=== PATIENT | female | born 1970 | race Caucasian/White ===

== ENCOUNTER → 2019-12-08 16:07 | Outpatient (CLI) | payer OTHER, SELFPAY ==
--- NOTE | ~2019-12-08 | MM_ITS ---
EXAMINATION: MM screening [facility] BI w leo HISTORY: Screening mammogram TECHNIQUE: Craniocaudal and mediolateral oblique 3-D tomosynthesis images were obtained and synthetic 2-D images were generated. CAD analysis was submitted and interpreted. COMPARISON: 12/01/2018, 11/30/2017, 11/29/2016 BREAST PARENCHYMAL COMPOSITION: There are scattered areas of fibroglandular density. FINDINGS: There is no evidence of suspicious mass, calcification, or architectural distortion to sugg est malignancy in either breast. There has been no suspicious interval change. IMPRESSION: 1. No mammographic evidence of malignancy. 2. Recommend routine screening mammography in one year. BI-RADS Category 1: Negative Reviewed, dictated and finalized at location A.
== END ==
PROVIDERS: Visit Provider Obstetrics & Gynecology Gynecology
DX: Z12.31 Encounter for screening mammogram for malignant neoplasm of breast (principal)
CPT/HCPCS: 77063; 77067

== ENCOUNTER → 2020-12-10 16:31 | Outpatient (CLI) | payer OTHER, SELFPAY ==
--- NOTE | ~2020-12-10 | MM_ITS ---
EXAMINATION: MM screening [facility] BI w leo HISTORY: Screening TECHNIQUE: Craniocaudal and mediolateral oblique 3-D tomosynthesis images were obtained and synthetic 2-D images were generated. CAD analysis was submitted and interpreted. COMPARISON: Comparison to multiple prior studies sequentially, with oldest reviewed study dated 11/21. BREAST PARENCHYMAL COMPOSITION: There are scattered areas of fibroglandular density. FINDINGS: There is no evidence of suspicious mass, calcification, or architectural distortion to sugg est malignancy in either breast. There has been no suspicious interval change. IMPRESSION: 1. No mammographic evidence of malignancy. 2. Recommend routine screening mammography in one year. BI-RADS Category 1: Negative Reviewed, dictated and finalized at location A.
== END ==
PROVIDERS: Visit Provider Nurse Practitioner
DX: Z12.31 Encounter for screening mammogram for malignant neoplasm of breast (principal)
CPT/HCPCS: 77063; 77067

== ENCOUNTER → 2022-01-16 16:25 | Outpatient (CLI) | payer OTHER, SELFPAY ==
--- NOTE | ~2022-01-16 | MM_ITS ---
EXAMINATION: MM screening [facility] BI w leo HISTORY: Screening mammogram TECHNIQUE: Craniocaudal and mediolateral oblique 3-D tomosynthesis images were obtained and synthetic 2-D images were generated. CAD analysis was submitted and interpreted. COMPARISON: 12/10/2020, 12/08/2019, 12/01/2018 BREAST PARENCHYMAL COMPOSITION: There are scattered areas of fibroglandular density. FINDINGS: No suspicious mass, calcification, or architectural distortion are identified in either naren ast to suggest malignancy. There has been no suspicious interval change. IMPRESSION: 1. No mammographic evidence of malignancy. 2. Recommend routine screening mammography in one year. BI-RADS Category 1: Negative Reviewed, dictated and finalized at location A.
== END ==
PROVIDERS: PCP Family Medicine; Visit Provider Nurse Practitioner
DX: Z12.31 Encounter for screening mammogram for malignant neoplasm of breast (principal)
CPT/HCPCS: 77063; 77067

== ENCOUNTER → 2022-03-28 09:49 | Outpatient (CLI) | payer OTHER, SELFPAY ==
--- NOTE | ~2022-03-28 | US_ITS ---
EXAMINATION: US transvaginal DATE: 03/28/2022 10:12 INDICATION: Fibroids. Irregular bleeding. Comparison:Ultrasound dated 01/24/2021 TECHNIQUE: Multiple transabdominal and endovaginal sonographic images of the pelvis performed. FINDINGS: The uterus measures 8.5 x 3.4 x 6.5 cm. In the right aspect of the uterus there is a 4 x 3. 8 x 3.5 cm uterine fibroid. The endometrial complex measures 4. The ovaries are not visualized. There is no free fluid in the pelvis. There are no abnormal masses s een on either side. IMPRESSION: 1. Bicornuate uterus. 4 cm exophytic fibroid present paracentral to the right. Reviewed, dictated and finalized at location B. PRESSURE
== END ==
PROVIDERS: PCP Family Medicine; Visit Provider Nurse Practitioner
DX: N85.2 Hypertrophy of uterus (principal); Q51.3 Bicornate uterus
CPT/HCPCS: 76830

== ENCOUNTER → 2023-05-13 15:07 | Outpatient (CLI) | payer OTHER, SELFPAY ==
--- NOTE | ~2023-05-13 | MM_ITS ---
EXAMINATION: MM screening [facility] BI w leo HISTORY: Screening TECHNIQUE: Craniocaudal and mediolateral oblique 3-D tomosynthesis images were obtained and synthetic 2-D images were generated. CAD analysis was submitted and interpreted. COMPARISON: Comparison to multiple prior studies sequentially, with oldest reviewed study dated 11/29. BREAST PARENCHYMAL COMPOSITION: Not dense: There are scattered areas of fibroglandular density. FINDINGS: There is no evidence of suspicious mass, calcification, or architectural distortion to sugg est malignancy in either breast. There has been no suspicious interval change. IMPRESSION: 1. No mammographic evidence of malignancy. 2. Recommend routine screening mammography in one year. BI-RADS Category 1: Negative Reviewed, dictated and finalized at location A. 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
== END ==
PROVIDERS: PCP Obstetrics & Gynecology Gynecology; Visit Provider Obstetrics & Gynecology Gynecology
DX: Z12.31 Encounter for screening mammogram for malignant neoplasm of breast (principal)
CPT/HCPCS: 77063; 77067

== ENCOUNTER 2024-06-28 20:43 | Emergency (ER) | payer OTHER, SELFPAY ==
--- OUTSIDE RECORDS SUMMARY | 2024-06-28 20:45 | XMS_ITS | Clinical Summary ---
Author Organization [address] Address [address] [place] [id number] Care Team Providers Care Freight Air Brake Fitter Name Role Phone Jay Jay Llanes MD Primary Care Provid er Allergies No known active allergies Medications norgestimate-eth inyl estradiol (ORTHO TRI-CYCLEN,VALENTINE SSA) 0.18/0.215/0.25 mg-35 mcg (28) per tablet 9 Active cetirizine (ZyrTEC) 10 mg tablet Rx: Zyrtec Allergy Active Vitamin D2 1,250 mcg (50,000 unit) capsule 0 Active clonazePAM (KlonoPIN) 0.5 mg tabletIndication s:Anxiety disorder, unspecified type Take 0.5-1 tablets (0.25-0.5 mg total) by mouth 2 (two) times a day as needed for anxiety 180 tablet 1 3 Active Additional Information Patient not taking.Reported on 03/09/2024 FLUoxetine (PROzac) 40 mg capsule TAKE 1 CAPSULE DAILY 90 capsule 3 4 Active levothyroxine (SYNTHROID) 25 mcg tablet TAKE 1 TABLET BY MOUTH EVERY DAY IN THE MORNING DIRECTED 4 Active liothyronine (CYTOMEL) 5 mcg tablet Take 1 tablet (5 mcg total) by mouth daily 4 Active progesterone (PROMETRIUM) 100 mg capsule TAKE 1 CAPSULE BY MOUTH ONCE A DAY AT BEDTIME. 4 Active Active Problems Problem Noted Date Diagnosed Date Anxiety disorder, unspecified 09/17/2015 Major depressive disorder, single episode, unspe cified 09/17/2015 Encounters Date Type Department Care Team Description 05/16/2024 2:58 PM BOX TRUCK WASHER - 05/16/2024 11:59 PM BOX TRUCK WASHER Hospital Encounter [facility] Medical Office Bldg 1 [facility] [address] [place] [address] Screening mammogram, encounter for Discharge Disposition: Discharge to home or self care 04/04/[address] [facility] Family Medicine [address] [phone] Jay Jay Llanes MD from Last 3 Months Immunizations Immunization Administration Dates Next Due Influenza, Trivalent, IM (MDV) 12/19/2013 Influenza, Unspecified 03/09/2024(Deferr ed: Patient Refused),03/17/2023(Deferred: Patient Refused),01/20/2022(Deferred: Patient Refused),01/25/2020(Deferred: Patient Refused) MMR 08/27/1992,05/09/1977 Pfizer SARS-CoV-2 Monovalent Vaccination (12+ Yrs) PURPLE 08/06/2020,07/09/2020 Td, adsorbed 08/27/1992 Tdap 12/16/2005 Surgical History Surgery Date Site/Laterality Comments WISDOM TOOTH EXTRACTION Medical History Medical History Date Comments Anemia Allergic Family History * Patient is adopted Medical History Relation Name Comments Diabetes Other Relation Name Status Comments Other Social History Tobacco Use Types Packs/Day Years Used Date Smoking Tobacco: Never Smokeless Tobacco: Never Tobacco Cessation:Counseling Given: Not Answered Alcohol Use Standard Drinks/Week Comments Yes 0 (1 standard drink = 0.6 oz pur e alcohol) AUDIT-C Answer Date Recorded Frequency of Alcohol Consumption Monthly or less 11/01/2018 Average Number of Drinks Not on file 019 Frequency of Binge Drinking Not on file 10/12 PHQ-2 Answer Date Recorded PHQ-2 Total Score 0 03/09/2024 Comments No Sex and Gender Information Value Date Recorded Sex Assigned at Not on file Legal Sex Female 7:04 PM BOX TRUCK WASHER Gender Identity Not on file Sexual Orientation Not on file Obstetrics History Para Term AB IAB SAB Ectopic Multiple Livin g Live Births 0 0 0 0 0 0 0 0 0 0 0 Last Filed Vital Signs Vital Sign Reading Time Taken Comments Blood Pressure 136/70 03/09/2024 2:52 PM BOX TRUCK WASHER Pulse 72 03/09/2024 2:52 PM BOX TRUCK WASHER Temperature 36.7 C (98 F) 03/09/2024 2:52 PM BOX TRUCK WASHER Respiratory Rate 18 03/09/2024 2:52 PM BOX TRUCK WASHER Oxygen Saturation 99% 03/09/2024 2:52 PM BOX TRUCK WASHER Inhaled Oxygen Concentration - - Weight 93.2 kg (205 lb 6.4 oz) 03/09/2024 2:52 P M BOX TRUCK WASHER Height 170.2 cm (5' 7 ) 03/09/2024 2:52 PM BOX TRUCK WASHER Body Mass Index 32.17 03/09/2024 2:52 PM BOX TRUCK WASHER Plan of Treatment Health Maintenance Due Date Last Done Comments Colon Cancer Screening-Colonoscopy 1970 Hepatitis C Screening 1970 Hepatitis B Screening 1990 DTaP/Tdap/Td Vaccine (2 - Td or Tdap) 12/17/2015 12/16/2005, 08/27/1992 Cervical Cancer Screening 03/09/2020 03/09/2019, Zoster Vaccine (1 of 2) 2022 Regular Well Visit/Exam 18-64 01/20/2023 01/20/2022, 01/20/2022, 09/24/2020, Additional history exists Covid-19 Vaccine ( season) 2023 04/28/2021, 08/06/2020, 07/09/2020 Influenza Vaccine (#1) 2023 12/19/2013 Depression Screening 03/09/2025 03/09/2024, 01/20/2022, 09/24/2020, Additional history exists Breast Cancer Screening-Mammogram 05/16/2025 05/16/2024, 01/16/2022, 12/08/2019, Additional history exists Pneumococcal vaccine <65 Aged Out No longer eligible based on patient's age to complete this topic Procedures Procedure Name Priority Date/Time Associated Diagnosis Comments SCREENING MAMMOGRAM BILATERAL W JEREL Schedule Routine, Read Routine (OP Routine) 05/16/2024 3:20 PM BOX TRUCK WASHER Screening mammogram, encounter for HM PAP SMEAR WITH HPV Routine 03/09/2019 from Last 3 Months or Most Recently Relevant to Health Maintenance Results * Screening Mammogram Bilateral W Jerel (05/16/2024 3:20 PM BOX TRUCK WASHER) Anatomical Region Laterality Modality Breast Bilateral Mammography Impressions 05/17/2024 2:14 PM BOX TRUCK WASHER BI-RADS ATLAS category (overall): 1 - Negative There is no mammographic evidence of malignancy. A 1 year screening mammogram is recommended. The patient has been or will be contacted. We recommend annual screening mammography for women at average risk of breast cancer beginning at age 40, based on guidelines of the [employer] (ACR Practice Parameter for the Performance of Screening and Diagnostic Mammography) and [employer]. For women with and elevated risk of breast cancer, please refer to the ACR Practice Parameter for specific screening recommendations. The patient will be entered into a reminder system with a target due date of 1 year for her next screening exam. Narrative 05/17/2024 2:14 PM BOX TRUCK WASHER Screening Mammogram Bilateral W Jerel: 05/16/24 The study was acquired using full field digital technology and interpreted from soft copy. 2D digital mammographic views, as well as 3D digital tomosynthesis were performed in the CC and MLO projections. This study was resulted using Computer-Aided Detection (CAD). CLINICAL: Screening mammogram, encounter for. No relevant medical history has been documented for this patient. No known family history of breast cancer. No comparisons were made when reading this study. BREAST TISSUE: There are scattered areas of fibroglandular density. FINDINGS: No suspicious masses, suspicious calcifications, or other suspicious findings are seen within either breast. There has been no suspicious change. us Self Screening Mammogram IMG MAMMO PROCEDURES Fi nal Result * HM PAP SMEAR WITH HPV (03/09/2019) HM Pap smear Normal Historical Provider HEALTH MAINTENANCE Final Result from Last 3 Months or Most Recently Relevant to Health Maintenance Insurance [facility] Care Teams Freight Air Brake Fitter Relationship Specialty Start Date End Date Jay Jay Llanes MD [address] [place] [address] PCP - General Family Medicine 10/29/18
--- OUTSIDE RECORDS SUMMARY | 2024-06-28 20:45 | XMS_ITS | Encounter Summary ---
Author Organization [facility] Facility Care Team Providers Care Ready Mix Truck Driver Name Role Phone Jay Jay Llnaes MD Primary Care Provid er Encounter Details Date Type Department Care Team (Latest Contact Info) Description 08/20/2015 Orders Only MMG CLINCONV ProviderShira MD [address] [place] [id number] Social History Tobacco Use Types Packs/Day Years Used Date Smoking Tobacco: Never Assessed Comments Unknown Sex and Gender Information Value Date Recorded Sex Assigned at Not on file Legal Sex Female 7:04 PM TRANSCRIPTION COORDINATOR Gender Identity Not on file Sexual Orientation Not on file documented as of this encounter Plan of Treatment Not on file documented as of this encounter Procedures Procedure Name Priority Date/Time Associated Diagnosis Comments SCAN - LABS 08/20/2015 12:00 AM CDT documented in this encounter Results * SCAN - LABS (08/20/2015 12:00 AM CDT) Narrative 08/20/2015 12:00 AM CDT Ordered by an unspecified provider. us Historical Provider Final Res ult documented in this encounter Visit Diagnoses Not on filedocumented in this encounter Care Teams Ready Mix Truck Driver Relationship Specialty Start Date End Date Jay Jay Llanes MD [address] [place] [address] PCP - General Family Medicine 10/29/18 documented as of this encounter
--- OUTSIDE RECORDS SUMMARY | 2024-06-28 20:45 | XMS_ITS | Referral Summary ---
Author Organization [address] Address [address] [address] Care Team Providers Care Software Development Specialist Name Role Phone Jay Jay Llanes MD Primary Care Provid er Encounters Date Type Department Care Team Description 05/16/2024 2:58 PM TURKEY PICKER - 05/16/2024 11:59 PM [facility] Hospital Encounter [facility] Medical Office Bldg 1 [facility] [address] [place] [address] [place] [phone] Screening mammogram, encounter for Discharge Disposition: Discharge to home or self care 04/04/2024 Telephone [facility] Medical [facility] Family Medicine [address] [place] [phone] Jay Jay Llanes MD from Last 3 Months Allergies No known active allergies Medications norgestimate-eth [...] depressive disorder, single episode, unspe cified 09/17/2015 Immunizations Immunization Administration Dates Next Due Influenza, Trivalent, IM (MDV) 12/19/2013 Influenza, Unspecified 03/09/2024(Deferr ed: Patient Refused),03/17/2023(Deferred: Patient Refused),01/20/2022(Deferred: Patient Refused),01/25/2020(Deferred: Patient Refused) MMR 08/27/1992,05/09/1977 Pfizer SARS-CoV-2 Monovalent Vaccination (12+ Yrs) PURPLE 08/06/2020,07/09/2020 Td, adsorbed 08/27/1992 Tdap 12/16/2005 Social History Tobacco Use Types Packs/Day Years [...] on file Legal Sex Female 7:04 PM TURKEY PICKER Gender Identity Not on file Sexual Orientation Not on file Last Filed Vital Signs Vital Sign Reading Time Taken Comments Blood Pressure 136/70 03/09/2024 2:52 PM TURKEY PICKER Pulse 72 03/09/2024 2:52 PM TURKEY PICKER Temperature 36.7 C (98 F) 03/09/2024 2:52 PM TURKEY PICKER Respiratory Rate 18 03/09/2024 2:52 PM TURKEY PICKER Oxygen Saturation 99% 03/09/2024 2:52 PM TURKEY PICKER Inhaled Oxygen Concentration - - Weight 93.2 kg (205 lb 6.4 oz) 03/09/2024 2:52 P M TURKEY PICKER Height 170.2 cm (5' 7 ) 03/09/2024 2:52 PM TURKEY PICKER Body Mass Index 32.17 03/09/2024 2:52 PM TURKEY PICKER Plan of Treatment Not on file Procedures Procedure Name Priority Date/Time Associated Diagnosis Comments SCREENING MAMMOGRAM BILATERAL W JEREL Schedule Routine, Read Routine (OP Routine) 05/16/2024 3:20 PM TURKEY PICKER Screening mammogram, encounter for HM PAP SMEAR WITH HPV Routine 03/09/2019 from Last 3 Months or Most Recently Relevant to Health Maintenance Results * Screening Mammogram Bilateral W Jerel (05/16/2024 3:20 PM TURKEY PICKER) Anatomical Region Laterality Modality Breast Bilateral Mammography Impressions 05/17/2024 2:14 PM TURKEY PICKER BI-RADS ATLAS category (overall): 1 - Negative There is no mammographic evidence of malignancy. A 1 year screening mammogram is recommended. The patient has been or will be contacted. We recommend annual screening mammography for women at average risk of breast cancer beginning at age 40, based on guidelines of the [employer] (ACR Practice Parameter for the Performance of Screening and Diagnostic Mammography) and [employer]. For women with and elevated risk of breast cancer, please refer to the ACR Practice Parameter for specific screening recommendations. The patient will be entered into a reminder system with a target due date of 1 year for her next screening exam. Narrative 05/17/2024 2:14 PM TURKEY PICKER Screening Mammogram Bilateral W Jerel: 05/16/24 The [...] breast. There has been no suspicious change. Self Screening Mammogram IMG MAMMO PROCEDURES Fi nal Result * PAP SMEAR WITH HPV (03/09/2019) Pap smear Normal Historical Provider HEALTH MAINTENANCE Final Result from Last 3 Months or Most Recently Relevant to Health Maintenance Insurance [facility] Care Teams Software Development Specialist Relationship Specialty Start Date End Date Jay Jay Llanes MD [address] [place] [address] PCP - General Family Medicine 10/29/18
--- OUTSIDE RECORDS SUMMARY | 2024-06-28 20:46 | XMS_ITS ---
Author Organization [facility] Address [address] [place] [address] Care Team Providers Care Automotive Service Director Name Role Phone Jay Jay Llanes MD Primary Care Provider Unavail able Teresita King Unavailable [phone] ZZ-Migration, Provider Unavailable Unavailab REASON FOR VISIT [facility] [place] [facility] To [facility] Conversion Encounter Medications Medication SIG (Take, Route, Frequency, Duration) Notes Start Date End Date Status ZANTAC 150 150 MG 1 TAB(S) ORALLY 2 TIMES A DAY *Please review for potential replacement for e-prescription and drug interaction check* Active Auvi-Q 0.3 MG/0.3ML 0.3 mg intramuscularly once for 1 dose(s) Active Singulair 10 MG 1 tab(s) orally 30 minutes prior to shots Active ZyrTEC Allergy 10 MG 1 tab(s) orally once a day Active Pataday 0.2 % 1 gtt in each affected eye once a day Active Flonase Allergy Relief 50 MCG/ACT 1 spray(s) intranasally once a day for 30 day(s) Not-Taking SIT (TRADITIONAL) VARIABLE PER SCHEDULE SC PER SCHEDULE *Please review for potential replacement for e-prescription and drug interaction check* Active clonazePAM 0.5 MG 1 tab(s) orally 3 times a day Not-Taking SIT (CLUSTER) VARIABLE PER SCHEDULE SC PER SCHEDULE for TO BE DETERMINED *Please review for potential replacement for e-prescription and drug interaction check* Not-Taking FLUoxetine HCl 20 MG 1 cap(s) orally once a day Not-Taking SIT (TRADITIONAL) VARIABLE PER SCHEDULE SC PER SCHEDULE for TO BE DETERMINED *Please review for potential replacement for e-prescription and drug interaction check* Active Fish Oil 1000 MG 1 cap(s) orally 3 times a day Active Singulair 10 MG 1 tab(s) orally once a day (in the evening) Active TriNessa (28) 0.18/0.215/0.25 MG-35 MCG 1 tab(s) orally once a day Active Vitamin D3 50 MCG (1999 UT) 1 tab(s) orally once a day Active EpiPen 2-Derick 0.3 MG/0.3ML 0 mg intramuscularly once for 1 dose(s) Active Encounters Encounter Location Date Provider Diagnosis [address] [phone] 09/26/2023 Provider Jose Allergic rhinitis due to pollen J30.1 and Other chronic allergic conjunctivitis H10.45 Assessments Encounter Date Diagnosis (ICD Code) Assessment Notes Treatment Notes Treatment Clinical Notes Section Notes 09/26/2023 Allergic rhinitis due to pollen (ICD-10 - J30.1) 09/26/2023 Other chronic allergic conjunctivitis (ICD-10 - H10.45) Plan Of Treatment Medication Medication Name Sig Start Date Stop Date Notes ZANTAC 150 150 MG 1 TAB(S) ORALLY 2 TI MES A DAY *Please review for potential replacement for e-prescription and drug interaction check* Auvi-Q 0.3 MG/0.3ML 0.3 mg intramuscular ly once for 1 dose(s) Singulair 10 MG 1 tab(s) orally 30 minutes prior to shots ZyrTEC Allergy 10 MG 1 tab(s) orally onc e a day Pataday 0.2 % 1 gtt in each affect ed eye once a day SIT (TRADITIONAL) VARIABLE PER SCHEDULE SC PER SCHEDULE *Please review for potential replacement for e-prescription and drug interaction check* Progress Notes * Kelsey RANGEL CDOB: [birth year] (53 yo F)Acc No.[id number]:09/26/2023 Patient: Kelsey JACKMAN Provider: Idris Benoit :1970 A ge:52 Y S ex:Female Date:09/26/2023 Address:[address] [place] [address] [facility] Pcp:Jay Jay Llanes MD Subjective: * Chief Complaints: * 1 . Multum To Medispan Conversion Encounter. * Medical History: * Medications: T aking EpiPen 2-Derick 0.3 MG/0.3ML Solution Auto-injector 0 mg intramuscularly once , Taking TriNessa (28) 0.18/0.215/0.25 MG-35 MCG Tablet 1 tab(s) orally once a day , Taking Vitamin D3 50 MCG (2000 UT) Tablet 1 tab(s) orally once a day , Taking Fish Oil 1000 MG Capsule 1 cap(s) orally 3 times a day , Taking Singulair 10 MG Tablet 1 tab(s) orally once a day (in the evening) , Taking SIT (TRADITIONAL) VARIABLE SEE RECORD PER SCHEDULE SC PER SCHEDULE , Notes to Pharmacist: *Please review for potential replacement for e-prescription and drug interaction check*, Not- Taking/PRN FLUoxetine HCl 20 MG Capsule 1 cap(s) orally once a day , Not-Taking/PRN clonazePAM 0.5 MG Tablet 1 tab(s) orally 3 times a day , Not-Taking/PRN SIT (CLUSTER) VARIABLE SEE RECORD PER SCHEDULE SC PER SCHEDULE , Notes to Pharmacist: *Please review for potential replacement for e-prescription and drug interaction check*, Not- Taking/PRN Flonase Allergy Relief 50 MCG/ACT Suspension 1 spray(s) intranasally once a day Objective: * Vitals: Assessment: * Assessment: 1. A llergic rhinitis due to pollen - J30.1 (Primary) 2 . O ther chronic allergic conjunctivitis - H10.45 Plan: * Treatment: 2. O ther chronic allergic conjunctivitis Continue Pataday Solution, 0.2 %, 1 gtt, in each affected eye, once a day. * Billing Information: * Visit Code: * Procedure Codes: * Electronic signature of Prabha MENEZES-Migration on 06/28/2024 at 08:45 PM CDT Sign off status: Pending * Provider: Idris fairbanks Migration Date: 09/26/2023 Generated for Jax john/Reilly/Ravi on: 06/28/2024 08:45 PM CDT
--- OUTSIDE RECORDS SUMMARY | 2024-06-28 20:46 | XMS_ITS | Clinical Summary ---
Author Organization [facility] Address [address] [place] [address] Care Team Providers Care Manager Safe Name Role Phone Unavailable Primary Care Provider Unavailabl e Source Comments [facility],non-owned Affiliates and Associated Physician Practices is amultiple site organization consisting of ambulatory clinics and hospital sitesin [place], [place], [place] and [place]. This disclosure is being madepursuant to the Care Everywhere program and may not contain all information available regarding this patient. Last updated 18.[facility] [employer] Allergies No known active allergies Medications * Be aware that medications may not be up to date on this document. Alwaysverify current medications with the patient. Medication Sig Dispensed Refills Start Date End Date Status VITAMIN D PO Active OtherIndications:Fem puneet Control Device Expulsion from Genital Tract Reasons: Expulsion of Female Control Device Active Cetirizine HCl (ZYRTEC PO) Active clonazePAM (KLONOPIN) 0.5 MG tablet Take 0.25-0.5 mg by mouth 11/01/2018 Active vitamin D, ergocalciferol, (DRISDOL) 1.25 MG (68253 UT) capsule 02/13/2019 Active norgestim-eth estrad triphasic tablet 10/15/2018 Active azithromycin (ZITHROMAX) 250 MG tablet Take 2 tabs today, then 1 tab daily for next 4 days 6 tablet 03/20/2019 Active Social History Tobacco Use Types Packs/Day Years Used Date Smoking Tobacco: Never Smokeless Tobacco: Never Tobacco Cessation:Counseling Given: Yes Sex and Gender Information Value Date Recorded Sex Assigned at Not on file Gender Identity Not on file Sexual Orientation Not on file Last Filed Vital Signs Vital Sign Reading Time Taken Comments Blood Pressure 110/80 03/20/2019 12:24 PM MAINTENANCE GROUNDSKEEPER Pulse 82 03/20/2019 12:24 PM MAINTENANCE GROUNDSKEEPER Temperature 37.2 C (98.9 F) 03/20/2019 12:24 PM MAINTENANCE GROUNDSKEEPER Respiratory Rate 16 03/20/2019 12:24 PM MAINTENANCE GROUNDSKEEPER Oxygen Saturation 99% 03/20/2019 12:24 PM MAINTENANCE GROUNDSKEEPER Inhaled Oxygen Concentration - - Weight 86.2 kg (190 lb) 03/20/2019 12:24 PM MAINTENANCE GROUNDSKEEPER Height 170.2 cm (5' 7 ) 03/20/2019 12:24 PM MAINTENANCE GROUNDSKEEPER Body Mass Index 29.76 03/20/2019 12:24 PM MAINTENANCE GROUNDSKEEPER Plan of Treatment Health Maintenance Due Date Last Done Comments COLOGUARD (AGES 45-75) - COL ON CA SCREENING 1972 COLON MONITORING 1972 COLONOSCOPY - COLON CA SCREENING 1972 CT COLONOGRAPHY - COLON CA SCREENING 1972 Colorectal Cancer Screening 1972 FIT - COLON CA SCREENING 1972 FLEX SIG - COLON CA SCREENING 1972 LIPID TESTING 1972 MAMMOGRAM 1972 PAP SMEAR 1972 HIV SCREENING 12/03/1987 HEPATITIS C SCREENING 11/28/1990 DTAP/TDAP/TD VACCINES (1 - Tdap) 12/03/1991 HEPATITIS B VACCINE (1 of 3 - 19+ 3-dose series) 12/03/1991 SCREENING FOR DIABETES 03/07/2019 PNEUMOCOCCAL VACCINE 50+ (1 of 1 - PCV) 2022 ZOSTER VACCINE (1 of 2) 2022 COVID-19 VACCINE (1 - 2023-2 5 season) 2023 INFLUENZA VACCINE (#1) 2023 DEPRESSION SCREENING 04/13/2024 HIB VACCINE Aged Out No longer eligi ble based on patient's age to complete this topic HPV VACCINE Aged Out No longer eligi ble based on patient's age to complete this topic MENINGOCOCCAL (Group B) VACC INE SHARED DECISION-MAKING Aged Out No longer eligibl e based on patient's age to complete this topic MENINGOCOCCAL GROUPS A/C/Y/W VACCINE Aged Out No longer eligible b ased on patient's age to complete this topic PNEUMOCOCCAL VACCINE Aged Out No long er eligible based on patient's age to complete this topic
--- OUTSIDE RECORDS SUMMARY | 2024-06-28 20:46 | XMS_ITS ---
Author Organization [facility] Address [address] [place] [address] Care Team Providers Care Insurance Healthcare Representative Name Role Phone Jay Jay Llanes MD Primary Care Provider Unavail able Teresita King Unavailable [phone] REASON FOR VISIT Message Encounters Encounter Location Date Provider Diagnosis [facility] [address] [place] [address] 03/09/2024 Teresita King Plan Of Treatment No Information Progress Notes * Kelsey RANGEL CDOB: [birth year] (53 yo F)Acc No.[id number]:03/09/2024 Patient: Estela Kelsey ALVARADO :1970 A ge:53 Y S ex:Female Address:[address], [place], [address] * true * Date: Generated for Printi ng/Faxing/eTransmitting on: 0 06/28/2024 08:45 PM CDT
[2024-06-28 21:01] VITALS: BP 136/87; PULSE 102; RESP 15; TEMP 36.9; O2SAT 98
[2024-06-28 21:44] LABS: Strep Group A RT-PCR NOT DETECTED (Negative)
[2024-06-28 22:40] LABS: Influenza A QL RT-PCR Negative (Negative); Influenza B QL RT-PCR Negative (Negative); SARS-CoV-2 RNA PCR Negative (Negative)
--- NOTE | 2024-06-28 22:52 | ED_ITS ---
HPI - URI/Sore Throat General Chief Complaint: Dental/Oral Stated Complaint: Strep throat Time Seen by Provider: 06/28/24 22:37 Source: patient Mode of arrival: ambulatory Limitations: no limitations History of Present Illness HPI Narrative: This is a 53-year-old female that presents to the emergency department for sore throat. Reports associated rhinorrhea, congestion, subjective fevers. Related Data Allergies Allergy/AdvReac Type Severity Reaction Status Date / Time No Known Allergies Allergy Verified 06/28/24 20:43 Review of Systems Review of Systems: CONSTITUTIONAL: Reports fever ENT: Reports rhinorrhea, congestion, sore throat All systems reviewed & are unremarkable except as noted in HPI and below PMFSH Past Medical History Medical History (Updated 06/28/24 @ 22:57 by Nikki Jackman PA-C) History of hypothyroidism Social History Social History (Updated 06/28/24 @ 22:57 by Nikki Jackman PA-C) Substance use: never Exam Narrative: GENERAL: Well-appearing, well-nourished, and in no acute distress. HEAD: Normocephalic, atraumatic. EYES: EOMI. ENT: Nares clear, no rhinorrhea or epistaxis. Mucous membranes moist. Oropharynx without tonsillar hypertrophy, exudate or other lesions. Bilateral TMs pearly perez non-bulging NECK: Supple. No adenopathy or masses. CHEST: Clear to auscultation. No respiratory distress. No wheezes rales or rhonchi HEART: Regular rate and rhythm. No murmur heard. Normal peripheral pulses. EXTREMITIES: Normal range of motion. No edema. SKIN: Warm, dry, no rash. NEURO: No focal deficits. Alert and oriented x3. PSYCH: Normal mood and affect Course Course Emergency Course: Patient updated on her workup and agrees with care Vital Signs Vital signs: Vital Signs Temperature 98.5 F 06/28/24 21:01 Pulse Rate 102 H 06/28/24 21:01 Respiratory Rate 15 06/28/24 21:01 Blood Pressure 136/87 06/28/24 21:01 Pulse Oximetry 98 06/28/24 21:01 Oxygen Delivery Room Air 06/28/24 21:01 Temperature 98.5 F 06/28/24 21:01 Pulse Rate 102 H 06/28/24 21:01 Respiratory Rate 15 06/28/24 21:01 Blood Pressure 136/87 06/28/24 21:01 Pulse Oximetry 98 06/28/24 21:01 Oxygen Delivery Room Air 06/28/24 21:01 MDM - URI/Sore Throat MDM Narrative Medical decision making narrative: Patient presents to the emergency department upper respiratory symptoms. She is afebrile and nontoxic appearing. Lungs are clear on exam. Oxygen saturation is normal on room air. COVID, influenza, and strep screens are negative. Patient was instructed on continued care of viral infection. She is to follow up with primary provider. She was given warnings to return to the ER Differential Diagnosis Differential diagnosis: Likely upper respiratory infection, sinusitis, viral infection, bronchitis, influenza, pharyngitis and other (COVID) Lab Data Attestation: I reviewed the patient's lab results. Labs: Lab Results 06/28/24 Range/Units 21:11 Influenza A (RT-PCR) Negative (Negative) Influenza B (RT-PCR) Negative (Negative) SARS-CoV-2 RNA (RT-PCR) Negative (Negative) Group A Strep (PCR) Not detected (Negative) Critical Care Time Critical Care Time Critical Care Time: No Discharge Plan Discharge Clinical Impression: Pharyngitis Qualifiers: Pharyngitis/tonsillitis etiology: unspecified etiology Qualified Code(s): J02.9 - Acute pharyngitis, unspecified Patient Disposition: Home, Self-Care Condition: Stable Instructions: Pharyngitis (ED) Additional Instructions: Return to the emergency department for worsening symptoms, or any other concerns Remain well-hydrated, get plenty of rest. Take Tylenol or Motrin over -the-counter for pain as needed. Flonase for nasal congestion. Zyrtec for runny nose. Lozenges or Chloraseptic spray for sore throat. Follow up with your primary care doctor Patient Language: [place] Islander Follow-up/Referrals: Milly Christopher MD [Primary Care Provider] -
[2024-06-28 23:03] VITALS: BP 127/83; PULSE 99; RESP 18; O2SAT 99
--- OUTSIDE RECORDS SUMMARY | 2024-06-28 23:08 | XMS_ITS | Patient Health Record ---
Author Organization [facility] Address [address] [place] [address] Care Team Providers Care Medical Management Trainer Name Role Phone Jay Jay Llanes MD Primary Care Provider Unavail able Teresita King Unavailable [phone] [employer], Provider Unavailable Unavailab le Reason For Referral No Information Medications Medication SIG (Take, Route, Frequency, Duration) Notes Start Date End Date Status ZANTAC 150 150 MG 1 TAB(S) ORALLY 2 TIMES A DAY *Please review for potential replacement for e-prescription and drug interaction check* Active Auvi-Q 0.3 MG/0.3ML 0.3 mg intramuscularly once for 1 dose(s) Active Singulair 10 MG 1 tab(s) orally 30 minutes prior to shots Active EpiPen 2-Derick 0.3 MG/0.3ML 0 mg intramuscularly once for 1 dose(s) Active ZyrTEC Allergy 10 MG 1 tab(s) orally once a day Active Pataday 0.2 % 1 gtt in each affected eye once a day Active PATADAY 0.2% 1 gtt in each affected eye once a day Active TRINESSA triphasic 35 mcg 1 tab(s) orally once a day Active AUVI -Q 0.3 mg 0.3 mg intramuscularly once for 1 dose(s) Active EPIPEN 2-DERICK 0.3 mg 0 mg intramuscularly once for 1 dose(s) Active SINGULAIR 10 mg 1 tab(s) orally 30 minutes prior to shots Active ZYRTEC 10 mg 1 tab(s) orally once a day Active Flonase Allergy Relief [...] for e-prescription and drug interaction check* Not-Taking SIT (TRADITIONAL) VARIABLE PER SCHEDULE SC PER SCHEDULE for TO BE DETERMINED *Please review for potential replacement for e-prescription and drug interaction check* Active FLUoxetine HCl 20 MG 1 cap(s) orally once a day Not-Taking Fish Oil 1000 MG 1 cap(s) orally 3 times a day Active Singulair 10 MG 1 tab(s) orally once a day (in the evening) Active TriNessa (28) 0.18/0.215/0.25 MG-35 MCG 1 tab(s) orally once a day Active Vitamin D3 50 MCG (2000 UT) 1 tab(s) orally once a day Active FLONASE 50 mcg/inh 1 spray(s) intranasally once a day for 30 day(s) Not-Taking CLONAZEPAM 0.5 mg 1 tab(s) orally 3 times a day Not-Taking VITAMIN D3 2000 intl units 1 tab(s) orally once a day Active FISH OIL 1000 mg 1 cap(s) orally 3 times a day Active FLUOXETINE 20 mg 1 cap(s) orally once a day Not-Taking SINGULAIR 10 mg 1 tab(s) orally once a day (in the evening) Active Immunizations Vaccine Route Administration Date Status Comme nts Influenza Unknown 12/19/2013 Administered Influenza Unknown 03/16/2018 Refused Social History Tobacco Use: Social History Observation Description Date Details (start date - stop date) Former Smoker NA - NA Smoking Smart Form: Question Answer Notes Are you a: former smoker How long it has been since you last smoked? > 10 years Problems Problem Type SNOMED Code ICD Code Onset Dates Problem Status W/U Status Risk Notes Problem Chronic allergic conjunctivitis (44737746) Chronic allergic conjunctivitis NOS (372.14) Active confirmed Problem Allergic rhinitis due to allergen (83423273) Allergic rhinitis due to allergen (477.8) Active confirmed Problem Chronic allergic conjunctivitis (15514778) Other chronic allergic conjunctivitis (H10.45) Active confirmed Problem Allergic rhinitis (00365586) Other allergic rhinitis (J30.89) Active confirmed Problem Allergic rhinitis caused by pollen (disorder) (92886452) Allergic rhinitis due to pollen (J30.1) Active confirmed Problem Allergic rhinitis caused by animal hair and dander (856723875137888) Allergic rhinitis due to animal (cat) (dog) hair and dander (J30.81) Active confirmed Encounters Encounter Location Date Provider Diagnosis [address] [address] 09/26/2023 Provider Jose Allergic rhinitis due to pollen J30.1 and Other chronic allergic conjunctivitis H10.45 [facility] [address] [facility] [address] [place] [address] 03/09/2024 Teresita King Assessments Encounter Date Diagnosis (ICD Code) Assessment Notes Treatment Notes Treatment Clinical Notes Section Notes 09/26/2023 Allergic rhinitis due to pollen (ICD-10 - J30.1) 09/26/2023 Other chronic allergic conjunctivitis (ICD-10 - H10.45) Plan Of Treatment No Information Insurance Providers Payer Name Payer Address Payer Phone Subscriber Number Group Number Insured Name Patient Relationship to Insured Coverage Start Date Coverage End Date [facility] [address] [place] [address] [phone] [id number] Nicholas Morataya i Spouse - patient is the spouse of the insured Medical (General) History Medical History History ICD Code Allergic rhinitis due to allergen Chronic allergic conjunctivitis NOS Surgical History Surgery Date(Month/Year)
--- OUTSIDE RECORDS SUMMARY | 2024-06-28 23:08 | XMS_ITS | Encounter Summary ---
Author Organization [facility] Care Team Providers Care Food Service Attendant Name Role Phone Jay Jay Llanes MD Primary Care Provid er Encounter Details Date Type Department Care Team (Latest Contact Info) Description 08/20/2015 Orders Only [facility]INCONV ProviderShira MD [address] [place] [id number] Social History Tobacco Use Types Packs/Day Years Used Date Smoking Tobacco: Never Assessed Comments Unknown Sex and Gender Information Value Date Recorded Sex Assigned at Not on file Legal Sex Female 7:04 PM ROTARY DERRICK OPERATOR Gender Identity Not on file Sexual Orientation [...] on filedocumented in this encounter Care Teams Food Service Attendant Relationship Specialty Start Date End Date Jay Jay Llanes MD [address] [place] [address] PCP - General Family Medicine 10/29/18 documented as of this encounter
--- OUTSIDE RECORDS SUMMARY | 2024-06-28 23:09 | XMS_ITS | Clinical Summary ---
Author Organization [facility] Address [address] [place] [address] Care Team Providers Care Tin Stacker Name Role Phone Unavailable Primary Care Provider Unavailabl e Source Comments [facility],non-owned Affiliates and Associated Physician Practices is amultiple site organization consisting of ambulatory clinics and hospital sitesin [place], [place], [place] and [place]. This disclosure is being madepursuant to the Care Everywhere program and may not contain all information available regarding this patient. Last updated 18.[facility] [employer] Allergies No known active allergies Medications * [...] Active vitamin D, ergocalciferol, (DRISDOL) 1.25 MG (46139 UT) capsule 02/13/2019 Active norgestim-eth estrad triphasic [...] Comments Blood Pressure 110/80 03/20/2019 12:24 PM LICENSED MARINE ENGINEER Pulse 82 03/20/2019 12:24 PM LICENSED MARINE ENGINEER Temperature 37.2 C (98.9 F) 03/20/2019 12:24 PM LICENSED MARINE ENGINEER Respiratory Rate 16 03/20/2019 12:24 PM LICENSED MARINE ENGINEER Oxygen Saturation 99% 03/20/2019 12:24 PM LICENSED MARINE ENGINEER Inhaled Oxygen Concentration - - Weight 86.2 kg (190 lb) 03/20/2019 12:24 PM LICENSED MARINE ENGINEER Height 170.2 cm (5' 7 ) 03/20/2019 12:24 PM LICENSED MARINE ENGINEER Body Mass Index 29.76 03/20/2019 12:24 PM LICENSED MARINE ENGINEER Plan of Treatment Health Maintenance Due Date [...]
--- OUTSIDE RECORDS SUMMARY | 2024-06-28 23:09 | XMS_ITS | Clinical Summary ---
Author Organization [address] Address [address] [place] [address] Care Team Providers Care Foreign Car Mechanic Name Role Phone Jay Jay Llanes MD [...] Department Care Team Description 05/16/2024 2:58 PM TEACHER CCLC - 05/16/2024 11:59 PM TEACHER CCLC Hospital Encounter [facility] Medical Office Bldg [facility] [address] [place] [address] Screening mammogram, encounter for Discharge Disposition: Discharge to home or self care 04/04/2024 Telephone [facility] Family Medicine [address] [address] Jay Jay Llanes MD from [...] on file Legal Sex Female 7:04 PM TEACHER CCLC Gender Identity Not on file Sexual Orientation Not on file Obstetrics History Para Term AB IAB SAB Ectopic Multiple Livin g Live Births 0 0 0 0 0 0 0 0 0 0 0 Last Filed Vital Signs Vital Sign Reading Time Taken Comments Blood Pressure 136/70 03/09/2024 2:52 PM TEACHER CCLC Pulse 72 03/09/2024 2:52 PM TEACHER CCLC Temperature 36.7 C (98 F) 03/09/2024 2:52 PM TEACHER CCLC Respiratory Rate 18 03/09/2024 2:52 PM TEACHER CCLC Oxygen Saturation 99% 03/09/2024 2:52 PM TEACHER CCLC Inhaled Oxygen Concentration - - Weight 93.2 kg (205 lb 6.4 oz) 03/09/2024 2:52 P M TEACHER CCLC Height 170.2 cm (5' 7 ) 03/09/2024 2:52 PM TEACHER CCLC Body Mass Index 32.17 03/09/2024 2:52 PM TEACHER CCLC Plan of Treatment Health Maintenance Due Date [...] Read Routine (OP Routine) 05/16/2024 3:20 PM TEACHER CCLC Screening mammogram, encounter for HM PAP SMEAR WITH HPV Routine 03/09/2019 from Last 3 Months or Most Recently Relevant to Health Maintenance Results * Screening Mammogram Bilateral W Jerel (05/16/2024 3:20 PM TEACHER CCLC) Anatomical Region Laterality Modality Breast Bilateral Mammography Impressions 05/17/2024 2:14 PM TEACHER CCLC BI-RADS ATLAS category (overall): 1 - Negative There is no mammographic evidence of malignancy. A 1 year screening mammogram is recommended. The patient has been or will be contacted. We recommend annual screening mammography for women at average risk of breast cancer beginning at age 40, based on guidelines of the [employer] (ACR Practice Parameter for the Performance of Screening and Diagnostic Mammography) and [employer]. For women with and elevated risk of breast cancer, please refer to the ACR Practice Parameter for specific screening recommendations. The patient will be entered into a reminder system with a target due date of 1 year for her next screening exam. Narrative 05/17/2024 2:14 PM TEACHER CCLC Screening Mammogram Bilateral W Jerel: 05/16/24 The [...] Most Recently Relevant to Health Maintenance Insurance [facility] [employer] [employer] [facility] Address: [place] [address] [facility] Address: [address] [address] Care Teams Foreign Car Mechanic Relationship Specialty Start Date End Date Jay Jay Llanes MD [address] [place] [address] PCP - General Family Medicine 10/29/18
--- OUTSIDE RECORDS SUMMARY | 2024-06-28 23:09 | XMS_ITS | Referral Summary ---
Author Organization [address] Address [address] [address] Care Team Providers Care Otolaryngology Surgeon Name Role Phone Jay Jay Llanes MD Primary Care Provid er Encounters Date Type Department Care Team Description 05/16/2024 2:58 PM TOPOLOGY TEACHER - 05/16/2024 11:59 PM [facility] Hospital Encounter [facility] Medical Office Bldg [facility] [address] [place] [address] [place] [phone] Screening mammogram, encounter for Discharge Disposition: Discharge to home or self care 04/04/2024 Telephone [facility] Family Medicine [address] [place] [phone] Jay Jay Llanes MD from Last [...] on file Legal Sex Female 7:04 PM TOPOLOGY TEACHER Gender Identity Not on file Sexual Orientation Not on file Last Filed Vital Signs Vital Sign Reading Time Taken Comments Blood Pressure 136/70 03/09/2024 2:52 PM TOPOLOGY TEACHER Pulse 72 03/09/2024 2:52 PM TOPOLOGY TEACHER Temperature 36.7 C (98 F) 03/09/2024 2:52 PM TOPOLOGY TEACHER Respiratory Rate 18 03/09/2024 2:52 PM TOPOLOGY TEACHER Oxygen Saturation 99% 03/09/2024 2:52 PM TOPOLOGY TEACHER Inhaled Oxygen Concentration - - Weight 93.2 kg (205 lb 6.4 oz) 03/09/2024 2:52 P M TOPOLOGY TEACHER Height 170.2 cm (5' 7 ) 03/09/2024 2:52 PM TOPOLOGY TEACHER Body Mass Index 32.17 03/09/2024 2:52 PM TOPOLOGY TEACHER Plan of Treatment Not on file Procedures Procedure Name Priority Date/Time Associated Diagnosis Comments SCREENING MAMMOGRAM BILATERAL W JEREL Schedule Routine, Read Routine (OP Routine) 05/16/2024 3:20 PM TOPOLOGY TEACHER Screening mammogram, encounter for HM PAP SMEAR WITH HPV Routine 03/09/2019 from Last 3 Months or Most Recently Relevant to Health Maintenance Results * Screening Mammogram Bilateral W Jerel (05/16/2024 3:20 PM TOPOLOGY TEACHER) Anatomical Region Laterality Modality Breast Bilateral Mammography Impressions 05/17/2024 2:14 PM TOPOLOGY TEACHER BI-RADS ATLAS category (overall): 1 - Negative There is no mammographic evidence of malignancy. A 1 year screening mammogram is recommended. The patient has been or will be contacted. We recommend annual screening mammography for women at average risk of breast cancer beginning at age 40, based on guidelines of the [employer] (ACR Practice Parameter for the Performance of Screening and Diagnostic Mammography) and [place]. For women with and elevated risk of breast cancer, please refer to the ACR Practice Parameter for specific screening recommendations. The patient will be entered into a reminder system with a target due date of 1 year for her next screening exam. Narrative 05/17/2024 2:14 PM TOPOLOGY TEACHER Screening Mammogram Bilateral W Jerel: 05/16/24 The [...] Most Recently Relevant to Health Maintenance Insurance [facility] [employer] [facility] [employer] Care Teams Otolaryngology Surgeon Relationship Specialty Start Date End Date Jay Jay Llanes MD [address] [place] [address] PCP - General Family Medicine 10/29/18
== END 2024-06-28 23:19 | disposition home or self-care (01) ==
LOC: ANHED 23:06
PROVIDERS: Emergency Medicine; Emergency Provider Physician Assistant
DX: J02.9 Acute pharyngitis, unspecified (principal); Z20.822 Contact with and (suspected) exposure to COVID-19; E03.9 Hypothyroidism, unspecified
CPT/HCPCS: 87636; 87651; 99283

== ENCOUNTER 2024-07-02 10:24 | Emergency (ER) | payer OTHER, SELFPAY ==
--- NOTE | 2024-07-02 10:30 | ED_ITS ---
HPI - General Adult General Chief complaint: Eye Problems Stated complaint: EYE REDNESS/WHITE SPOTS IN THROAT Time Seen by Provider: 07/02/24 10:30 Source: patient Mode of arrival: ambulatory Limitations: no limitations History of Present Illness HPI narrative: 53-year-old female patient presents to the [facility] with complaints of bilateral eye redness and itching. Patient states she woke up yesterday morning in the left eye had some dried drainage to the corner but denies any copious amounts of drainage. Patient states that this she woke up and now her other eye has redness, itching and had some dry drainage this morning. Denies any copious amounts of drainage states the biggest complaint is just the redness and itchiness. Patient states she has been dealing with some allergies lately and does take a daily antihistamine. Related Data Home Medications ?Medication ?Instructions ?Recorded ?Confirmed ?Last Taken ?Type ergocalciferol (vitamin D2) 1,250 07/02/24 Unknown History mcg (50,000 unit) capsule fluoxetine 40 mg capsule mg 07/02/24 Unknown History levothyroxine 25 mcg tablet mcg 07/02/24 Unknown History liothyronine 5 mcg tablet mcg 07/02/24 Unknown History progesterone micronized 100 mg mg 07/02/24 Unknown History capsule Allergies Allergy/AdvReac Type Severity Reaction Status Date / Time No Known Allergies Allergy Verified 07/02/24 10:35 Review of Systems Review of Systems: CONSTITUTIONAL: Denies fever, chills, or sweats. EYES: Denies visual changes, Positive bilateral eye redness and itchiness, positive morning dry discharge. ENT: Denies rhinorrhea, congestion, sore throat, or otalgia. CARDIOVASCULAR: Denies chest pain, palpitations, or edema. RESPIRATORY: Denies cough or dyspnea. GASTROINTESTINAL: Denies abdominal pain, nausea, vomiting, or diarrhea. GENITOURINARY: Denies dysuria or hematuria. SKIN: Denies rash or itching. MUSCULOSKELETAL: Denies back pain, joint pain, or myalgia. NEUROLOGIC: Denies headache, numbness, or weakness. PSYCHIATRIC: Denies anxiety or depression. [facility] Past Medical History Medical History History of hypothyroidism Social History Social History Substance use: never Comments At the time of my signature I agree with nursing past medical history, surgical, social, and family history. There is no relevant family history pertinent to the presenting complaint. Exam Narrative: GENERAL: Well-appearing, well-nourished, and in no acute distress. HEAD: Normocephalic, atraumatic. EYES: PERRLA and EOMI. bilateral eyes with erythema noted to the sclera bilaterally. No copious amounts of discharge present no evidence of bacterial infection. ENT: Nares clear, no rhinorrhea or epistaxis. Mucous membranes moist. NECK: Supple. No lymphadenopathy CHEST: Clear to auscultation. No respiratory distress. HEART: Regular rate and rhythm. No murmur heard. Normal peripheral pulses. ABDOMEN: Soft, nontender, nondistended, normal active bowel sounds. EXTREMITIES: Normal range of motion. No edema. SKIN: Warm, dry, no rash. NEURO: No focal deficits. Alert and oriented x3. Course Course Level of Care: Express Care Visit Vital Signs Vital signs: vital signs reviewed. Medical Decision Making MDM Narrative Medical decision making narrative: Plan of care for patient is to discharge home with antihistamine eyedrop to help with redness and itchiness. Encouraged patient to continue taking an oral antihistamine. Follow up with primary care doctor as needed. Differential Diagnosis Differential Diagnosis: Differential diagnosis: Conjunctivitis, foreign body, corneal ulcer, Keratitis, dendritic lesions, corneal abrasion, very orbital infection, orbital cellulitis, orbital pain, acute narrow angle glaucoma, detached retina, central retinal artery occlusion, complete hyphema, vitreous hemorrhage, optic neuritis, globe disruption Critical Care Time Critical Care Time Critical Care Time: No Discharge Plan Discharge Clinical Impression: Acute allergic conjunctivitis Patient Disposition: Home, Self-Care Condition: Stable Instructions: Antibiotic Form, Conjunctivitis (ED) Additional Instructions: Conjunctivitis is inflammation or irritation to the eye conjunctiva. This causes the white part of the eye to appear red or pink, which is why they call it pink eye . It can be caused by viruses, bacteria, allergies, injuries, chemicals or other eye diseases. Most pink eye (viral and bacterial) is contagious. It might affect the other eye and spread to other people. Everyone in the household shoule wash their hands often and not touch their eyes. Don't share towels, clothes, sheets, or blankets. After touching a pink eye , always wash your hands. Don't go to school until the pink eye is back to normal. Home Care: Gently clean any mucus from the eye with a soft, wet cloth. Everyone in the house should frequently wash their hands often with soap and w ater or hand teletype telegrapher and avoid sharing towels. Do not use contact lenses unless the eye doctor has approved this. Call your doctor or go to the ER if your condition worsens or: Eye pain is not better or getting worse. Vision is blurry. Infection is not improved in 2 days. Eyelid or face becomes red or swollen. Fever occurs. Patient Language: Romansh Prescriptions: New ketotifen fumarate [Zaditor] 0.025 % (0.035 %) drops 1 drop EACH EYE BID PRN (Reason: allergy symptoms) 5 Days Qty: 5 0RF Rx Instructions: administer at least 8 hours apart No Action fluoxetine 40 mg capsule liothyronine 5 mcg tablet levothyroxine 25 mcg tablet ergocalciferol (vitamin D2) 1,250 mcg (50,000 unit) capsule progesterone micronized 100 mg capsule Follow-up/Referrals: Ricardo,Wilfredo Parikh MD [Primary Care Provider] - Time of Disposition: 10:54
== END 2024-07-02 11:00 | disposition home or self-care (01) ==
PROVIDERS: Emergency Provider Nurse Practitioner Family; PCP Family Medicine
DX: H10.13 Acute atopic conjunctivitis, bilateral (principal); E03.9 Hypothyroidism, unspecified; Z79.899 Other long term (current) drug therapy
CPT/HCPCS: 99213; G0463

== ENCOUNTER 2024-07-22 14:49 | Outpatient (CLI) | payer OTHER, SELFPAY ==
--- NOTE | ~2024-07-22 | US_ITS ---
Thyroid ultrasound. Clinical History: Enlarged thyroid gland Findings: Real-time sonography of the thyroid gland was performed. The right lobe measures 5.0 x 1.3 x 1.5 cm. The left lobe measures 4.9 x 1.5 x 1.2 cm. The isthmus is 4 mm in AP diameter. No nodule e vident. Impression: Mildly prominent, homogeneous thyroid gland. No discrete nodule seen. Correlate with thyroid function tests, as indicated. Reviewed, dictated and finalized at location . Impression: Mildly prominent, homogeneous thyroid gland. No discrete nodule seen. Correlate with thyroid function tests, as indicated.
== END 2024-07-22 14:50 | disposition home or self-care (01) ==
LOC: MICIMG 14:50
PROVIDERS: PCP Family Medicine
DX: E04.9 Nontoxic goiter, unspecified (principal); E03.9 Hypothyroidism, unspecified; R13.10 Dysphagia, unspecified
CPT/HCPCS: 76536

== ENCOUNTER 2024-07-25 13:51 | Outpatient (CLI) | payer OTHER, SELFPAY ==
--- NOTE | ~2024-07-25 | XR_ITS ---
Lumbosacral Spine: AP and lateral views Clinical History: Pain Findings: The normal lordotic curve is maintained. The vertebral bodies and posterior elements are i ntact. The intervertebral disc spaces are preserved. There is mild to moderate facet arthropathy thr oughout the lumbar spine. The sacroiliac joints are normally outlined. Impression: Mild to moderate facet arthropathy throughout the lumbar spine. Reviewed, dictated and finalized at location . Impression: Mild to moderate facet arthropathy throughout the lumbar spine.
--- NOTE | ~2024-07-25 | XR_ITS ---
Right foot Technique: AP and lateral views were obtained. Clinical History: Pain Findings: No acute fracture or dislocation is seen. Osseous alignment is anatomic. There is moderate to advanced degenerative change of the first MTP joint. Soft tissues are unremarkable. Impression: Moderate to advanced degenerative change of the first MTP joint. Reviewed, dictated and finalized at [facility]. Impression: Moderate to advanced degenerative change of the first MTP joint.
--- NOTE | ~2024-07-25 | XR_ITS ---
[id number] 07/25/2024 14:52 Indication: Left knee pain Procedure: 2 views left knee Comparison: No prior studies for comparison. Findings: There is mild osteoarthritis of the left knee. No fracture, subluxation or dislocation. No joint effusion. Impression: 1: Mild osteoarthritis of the left knee. Reviewed, dictated and finalized at location B. Impression: 1: Mild osteoarthritis of the left knee.
--- NOTE | ~2024-07-25 | XR_ITS ---
[id number] 07/25/2024 14:52 Indication: Right knee pain Procedure: 2 views right knee Comparison: No prior studies for comparison. Findings: There is mild tricompartment osteoarthritis. No fracture, subluxation or dislocation. No si gnificant joint effusion. Impression: 1: Mild tricompartment osteoarthritis. Reviewed, dictated and finalized at location B. Impression: 1: Mild tricompartment osteoarthritis.
--- NOTE | ~2024-07-25 | XR_ITS ---
Left Hand Technique: PA and lateral views were obtained. Clinical History: Pain Findings: No acute fracture or dislocation is seen. Osseous alignment is anatomic. Joint spaces are p reserved. Soft tissues are unremarkable. Impression: Unremarkable left hand. Reviewed, dictated and finalized at location M. Impression: Unremarkable left hand.
--- NOTE | ~2024-07-25 | XR_ITS ---
AP and oblique views of the SI joints CLINICAL HISTORY: Pain FINDINGS: No fracture or dislocation seen. Visualized joint spaces are intact. No erosive inflammator y arthropathy identified. No degenerative change evident. Soft tissues are unremarkable. IMPRESSION: Unremarkable exam. Reviewed, dictated and finalized at location . IMPRESSION: Unremarkable exam.
--- NOTE | ~2024-07-25 | XR_ITS ---
Right Hand Technique: PA and lateral views were obtained. Clinical History: Pain Findings: No acute fracture or dislocation is seen. Osseous alignment is anatomic. Joint spaces are p reserved. Soft tissues are unremarkable. Impression: Unremarkable right hand. Reviewed, dictated and finalized at location M. Impression: Unremarkable right hand.
--- NOTE | ~2024-07-25 | XR_ITS ---
Left foot Technique: AP and lateral views were obtained. Clinical History: Pain Findings: No acute fracture or dislocation is seen. Osseous alignment is anatomic. Joint spaces are p reserved without erosive or degenerative change. Soft tissues are unremarkable. Impression: Unremarkable left foot radiographs. Reviewed, dictated and finalized at [facility]. Impression: Unremarkable left foot radiographs.
== END 2024-07-25 13:52 | disposition home or self-care (01) ==
LOC: MICIMG 13:57
PROVIDERS: Visit Provider Internal Medicine
DX: M17.0 Bilateral primary osteoarthritis of knee (principal); M19.071 Primary osteoarthritis, right ankle and foot; M47.896 Other spondylosis, lumbar region
CPT/HCPCS: 72100; 72202; 73120; 73560; 73620

== ENCOUNTER 2024-09-02 01:12 | Day surgery (SDC) | payer OTHER, SELFPAY ==
[2024-08-29 14:56] VITALS: BMI 31.4
--- NOTE | 2024-08-29 15:02 | PC.NURSE ---
Report to the Outpatient Waiting Room, entrance under the green pavilion located off [facility], at time _0730_ on date _[id number]_. Planned Procedure Time: _0930_.? Time changes happen often and if your time is changed the preop area will call you the afternoon before. - You and your visitor will be asked to self-screen and do not enter if you have any COVID symptoms. Please call surgeon if you need to reschedule. - A mask is optional within the hospital at this time. Patients may have clear liquids (water, carbonated beverages, clear teas, apple juice) until 3 hours prior to surgery with a maximum of 20 ounces. - No food from midnight until time of surgery and no smoking, or chewing tobacco (or any form of nicotine). No chewing gum, candy or mints. Take only the following medications with a SIP of water on the morning of surgery: ___Levothyroxine and Liothyronine DO NOT STOP ANY OF YOUR OTHER PRESCRIPTION MEDICATIONS PRIOR TO SURGERY EXCEPT THE FOLLOWING Hold all vitamins and supplements for 3 days per anesthesiologist. Medications to discontinue per physician Date to take last rhue___[id number]____ Please no make-up, nail qatari, hairspray, perfume, deodorant, or body powder the day of surgery.? No jewelry (including any body piercings) or valuables the day of surgery, leave them at home.? Please take a shower or bath the night before, or the morning of, surgery with an antibacterial soap.? Wear comfortable, loose fitting clothing.? - Jewelry must be removed prior to entering the operating room.? Rings and piercings that are not removed may be cut off. - The hospital will not accept responsibility for valuables.? - Please leave all valuables, including medications, at home the day of surgery. If you are going home after surgery, a licensed buggy driver must drive you home.? - NO public transportation without another adult if you receive anesthesia. - We recommend that an adult stay with you for 24 hours following discharge. - We also recommend that you do not drive, make important decision, drink alcoholic beverages, or take any drugs that were not prescribed by your health care provider for at least 24 hours after your discharge time. Follow any additional instructions given to you from your surgeon. Telephone instructions given to __Anne___and asked if any additional questions and then verbalized understanding. Patient advised to call surgeon office or pre surgery nurse liaison [phone] if any additional questions.
[2024-09-02] VITALS (8 sets, daily range): BP systolic 114–136; BP diastolic 74–88; PULSE 62–76; RESP 12–18; TEMP 36.3–36.6; O2SAT 99–100; BMI 31.8
--- NOTE | ~2024-09-02 | XR_ITS ---
INTRAOPERATIVE FLUOROSCOPY: CLINICAL HISTORY: 53 years old Female; RIGHT FOOT ARTHRODESIS PROCEDURE COMMENTS: Limited intraoperative fluoroscopy of the right foot was performed. CUMULATIVE DOSE: 0.13 mGy FLUOROSCOPY TIME: 21 seconds FINDINGS/IMPRESSION: Please refer to operative note for further details. Reviewed, dictated and finalized at location A.
--- OUTSIDE RECORDS SUMMARY | 2024-09-02 01:16 | XMS_ITS | Encounter Summary ---
Author Organization 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
--- OUTSIDE RECORDS SUMMARY | 2024-09-02 01:16 | XMS_ITS | Referral Summary ---
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 Gender Identity Not on file Sexual Orientation Not on file Last Filed Vital Signs Vital Sign Reading Time Taken Comments Blood Pressure 136/70 03/09/2024 2:52 PM MEDICAL RESEARCH ASSOCIATE Pulse 72 03/09/2024 2:52 PM MEDICAL RESEARCH ASSOCIATE Temperature 36.7 C (98 F) 03/09/2024 2:52 PM MEDICAL RESEARCH ASSOCIATE Respiratory Rate 18 03/09/2024 2:52 PM MEDICAL RESEARCH ASSOCIATE Oxygen Saturation 99% 03/09/2024 2:52 PM MEDICAL RESEARCH ASSOCIATE Inhaled Oxygen Concentration - - Weight 93.2 kg (205 lb 6.4 oz) 03/09/2024 2:52 P M MEDICAL RESEARCH ASSOCIATE Height 170.2 cm (5' 7 ) 03/09/2024 2:52 PM MEDICAL RESEARCH ASSOCIATE Body Mass Index 32.17 03/09/2024 2:52 PM MEDICAL RESEARCH ASSOCIATE Plan of Treatment Not on file Procedures Procedure Name Priority Date/Time Associated Diagnosis Comments US THYROID Schedule Routine, Read Routine (OP Routine) 07/22/2024 SCREENING MAMMOGRAM BILATERAL W JEREL Schedule Routine, Read Routine (OP Routine) 05/16/2024 3:20 PM MEDICAL RESEARCH ASSOCIATE Screening mammogram, encounter for HM PAP SMEAR WITH HPV Routine 03/09/2019 from Last 3 Months or Most Recently Relevant to Health Maintenance Results * US Thyroid (07/22/2024) Anatomical Region Laterality Modality Head and Neck N/A Ultrasound us Historical Provider MD GALLEGO US PROCEDURES Final R esult * Screening Mammogram Bilateral W Jerel (05/16/2024 3:20 PM MEDICAL RESEARCH ASSOCIATE) Anatomical Region Laterality Modality Breast Bilateral Mammography Impressions 05/17/2024 2:14 PM MEDICAL RESEARCH ASSOCIATE BI-RADS ATLAS category (overall): 1 - Negative There is no mammographic evidence of malignancy. A 1 year screening mammogram is recommended. The patient has been or will be contacted. We recommend annual screening mammography for women at average risk of breast cancer beginning at age 40, based on guidelines of the [employer] (ACR Practice Parameter for the Performance of Screening and Diagnostic Mammography) and [employer]. For women with and elevated risk of breast cancer, please refer to the ACR Practice Parameter for specific screening recommendations. The patient will be entered into a reminder system with a target due date of 1 year for her next screening exam. Narrative 05/17/2024 2:14 PM MEDICAL RESEARCH ASSOCIATE Screening Mammogram Bilateral W Jerel: 05/16/24 The [...] Most Recently Relevant to Health Maintenance Insurance [facility] CHO[facility] PLUS [facility] PL[facility] Care Teams Ice Cream Man Relationship Specialty Start Date End Date Jay Jay Llanes MD [address] [place] [address] PCP - General Family Medicine 10/29/18
--- OUTSIDE RECORDS SUMMARY | 2024-09-02 01:16 | XMS_ITS | Patient Health Record ---
Author Organization [facility] [employer] [facility] [address] ([address]) Address [address] [address] Care Team Providers Care Vp Of Product Name Role Phone Jay Jay Llanes MD Primary Care Provider Unavail able Teresita King Unavailable [phone] [employer], Provider Unavailable Unavailab le Reason For [...] Status Risk Notes Problem Chronic allergic conjunctivitis (44823608) Chronic allergic conjunctivitis NOS (372.14) Active confirmed Problem Allergic rhinitis due to allergen (03215175) Allergic rhinitis due to allergen (477.8) Active confirmed Problem Chronic allergic conjunctivitis (23550822) Other chronic allergic conjunctivitis (H10.45) Active confirmed Problem Allergic rhinitis (34937569) Other allergic rhinitis (J30.89) Active confirmed Problem Allergic rhinitis caused by pollen (disorder) (98039154) Allergic rhinitis due to pollen (J30.1) Active confirmed Problem Allergic rhinitis caused by animal hair and dander (888633902332242) Allergic rhinitis due to animal (cat) (dog) hair and dander (J30.81) Active confirmed Encounters Encounter Location Date Provider Diagnosis [address] [address] 09/26/2023 Provider ZZ-Migration Allergic rhinitis due to pollen J30.1 and Other chronic allergic conjunctivitis H10.45 [facility] [address] [facility] [address] [place] [address] 03/09/2024 Teresita King Assessments Encounter Date Diagnosis [...] Insured Coverage Start Date Coverage End Date [facility] [employer] [address] [address] [place] [address] [id number] Nicholas Winston Spouse - patient is the spouse of the insured Medical (General) History Medical History History ICD Code Allergic rhinitis due to allergen Chronic allergic conjunctivitis NOS Surgical History Surgery Date(Month/Year)
--- OUTSIDE RECORDS SUMMARY | 2024-09-02 01:16 | XMS_ITS ---
Author Organization [facility] ([address]) Address [address] [place] [address] Care Team Providers Care Hospice Manager Name Role Phone Jay Jay Llanes MD Primary Care Provider Unavail able Teresita King Unavailable [phone] [employer], Provider Unavailable Unavailab le REASON FOR VISIT [facility] Conversion Encounter Medications Medication SIG (Take, Route, [...] Active Encounters Encounter Location Date Provider Diagnosis [address] [address] 09/26/2023 Provider Jose Allergic rhinitis due to [...] Kelsey RANGEL CDOB: [birth year] (53 yo F)Acc No.[id number]:09/26/2023 Patient: Kelsey JACKMAN Provider: Idris Benoit :1970 A ge:52 Y S ex:Female Date:09/26/2023 [facility] Pcp:Jay Jay Llanes MD Subjective: * Chief [...] * Electronic signature of Prabha MENEZES-Migration on 09/02/2024 at 01:15 AM CDT Sign off status: Pending * Provider: Idris fairbanks Migration Date: 09/26/2023 Generated for Jax john/Reilly/Ravi on: 09/02/2024 01:15 AM CDT
--- OUTSIDE RECORDS SUMMARY | 2024-09-02 01:16 | XMS_ITS | Clinical Summary ---
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 Gender Identity Not on file Sexual Orientation Not on file Obstetrics History Para Term AB IAB SAB Ectopic Multiple Livin g Live Births 0 0 0 0 0 0 0 0 0 0 0 Last Filed Vital Signs Vital Sign Reading Time Taken Comments Blood Pressure 136/70 03/09/2024 2:52 PM PUBLIC HEALTH EDUCATOR Pulse 72 03/09/2024 2:52 PM PUBLIC HEALTH EDUCATOR Temperature 36.7 C (98 F) 03/09/2024 2:52 PM PUBLIC HEALTH EDUCATOR Respiratory Rate 18 03/09/2024 2:52 PM PUBLIC HEALTH EDUCATOR Oxygen Saturation 99% 03/09/2024 2:52 PM PUBLIC HEALTH EDUCATOR Inhaled Oxygen Concentration - - Weight 93.2 kg (205 lb 6.4 oz) 03/09/2024 2:52 P M PUBLIC HEALTH EDUCATOR Height 170.2 cm (5' 7 ) 03/09/2024 2:52 PM PUBLIC HEALTH EDUCATOR Body Mass Index 32.17 03/09/2024 2:52 PM PUBLIC HEALTH EDUCATOR Plan of Treatment Health Maintenance Due Date [...] season) 2023 04/28/2021, 08/06/2020, 07/09/2020 Influenza Vaccine (Season Ended) 2024 12/19/2013 Depression Screening 03/09/2025 03/09/2024, 01/20/2022, 09/24/2020, [...] Read Routine (OP Routine) 05/16/2024 3:20 PM PUBLIC HEALTH EDUCATOR Screening mammogram, encounter for HM PAP SMEAR WITH HPV Routine 03/09/2019 from Last 3 Months or Most Recently Relevant to Health Maintenance Results * US Thyroid (07/22/2024) Anatomical Region Laterality Modality Head and Neck N/A Ultrasound us Historical Provider MD GALLEGO US PROCEDURES Final R esult * Screening Mammogram Bilateral W Jerel (05/16/2024 3:20 PM PUBLIC HEALTH EDUCATOR) Anatomical Region Laterality Modality Breast Bilateral Mammography Impressions 05/17/2024 2:14 PM PUBLIC HEALTH EDUCATOR BI-RADS ATLAS category (overall): 1 - Negative There is no mammographic evidence of malignancy. A 1 year screening mammogram is recommended. The patient has been or will be contacted. We recommend annual screening mammography for women at average risk of breast cancer beginning at age 40, based on guidelines of the [employer] (ACR Practice Parameter for the Performance of Screening and Diagnostic Mammography) and [employer]. For women with and elevated risk of breast cancer, please refer to the ACR Practice Parameter for specific screening recommendations. The patient will be entered into a reminder system with a target due date of 1 year for her next screening exam. Narrative 05/17/2024 2:14 PM PUBLIC HEALTH EDUCATOR Screening Mammogram Bilateral W Jerel: 05/16/24 The [...] Most Recently Relevant to Health Maintenance Insurance [facility] PLUS [facility] Care Teams Lump Roller Relationship Specialty Start Date End Date Jay Jay Llanes MD [address] [place] [address] PCP - General Family Medicine 10/29/18
--- OUTSIDE RECORDS SUMMARY | 2024-09-02 01:16 | XMS_ITS | Clinical Summary ---
Author Organization [facility] Address [address] [place] [address] Care Team Providers Care [employer] Name Role Phone Unavailable Primary Care Provider Unavailabl e Source Comments [facility],non-owned Affiliates and Associated Physician Practices is amultiple site organization consisting of ambulatory clinics and hospital sitesin [place], [place], [place] and [place]. This disclosure is being madepursuant to the Care Everywhere program and may not contain all information available regarding this patient. Last updated 18.[facility] 51 Give Allergies No known active allergies Medications * Be aware that medications may not be up to date on this document. Alwaysverify current medications with the patient. VITAMIN D PO Active OtherIndication s:Female Control Device Expulsion from Genital Tract Reasons: Expulsion of Female Control Device Active Cetirizine HCl (ZYRTEC PO) Active clonazePAM (KLONOPIN) 0.5 MG tablet Take 0.25-0.5 mg by mouth 9 Active vitamin D, ergocalciferol, (DRISDOL) 1.25 MG (88573 UT) capsule 9 Active norgestim-eth estrad triphasic tablet 9 Active azithromycin (ZITHROMAX) 250 MG tablet Take 2 tabs today, then 1 tab daily for next 4 days 6 tablet 9 Active Social History Tobacco Use Types Packs/Day Years Used Date Smoking Tobacco: Never Smokeless Tobacco: Never Tobacco Cessation:Counseling Given: Yes Comments Unknown Sex and Gender Information Value Date Recorded Sex Assigned at Not on file Legal Sex Female 4:19 PM CDT Gender Identity Not on file Sexual Orientation Not on file Last Filed Vital Signs Vital Sign Reading Time Taken Comments Blood Pressure 110/80 03/20/2019 12:24 PM [facility] Pulse 82 03/20/2019 12:24 PM [facility] Temperature 37.2 C (98.9 F) 03/20/2019 12:24 PM [facility] Respiratory Rate 16 03/20/2019 12:24 PM [facility] Oxygen Saturation 99% 03/20/2019 12:24 PM [facility] Inhaled Oxygen Concentration - - Weight 86.2 kg (190 lb) 03/20/2019 12:24 PM [facility] Height 170.2 cm (5' 7 ) 03/20/2019 12:24 PM [facility] Body Mass Index 29.76 03/20/2019 12:24 PM [facility] Plan of Treatment Health Maintenance Due Date Last Done Comments COLOGUARD (AGES 45-75) - COL ON CA SCREENING 1972 COLON MONITORING 1972 COLONOSCOPY - COLON CA SCREENING 1972 CT COLONOGRAPHY - COLON CA SCREENING 1972 Colorectal Cancer Screening 1972 FIT - COLON CA SCREENING 1972 FLEX SIG - COLON CA SCREENING 1972 LIPID TESTING 1972 MAMMOGRAM 1972 HIV SCREENING 12/03/1987 HEPATITIS C SCREENING 11/28/1990 DTAP/TDAP/TD VACCINES (1 - Tdap) 12/03/1991 HEPATITIS B VACCINE (1 of 3 - 19+ 3-dose series) 12/03/1991 SCREENING FOR DIABETES 03/07/2019 PNEUMOCOCCAL VACCINE 50+ (1 of 1 - PCV) 2022 ZOSTER VACCINE (1 of 2) 2022 COVID-19 VACCINE (1 - 2023-2 5 season) 2023 DEPRESSION SCREENING 04/13/2024 INFLUENZA VACCINE (Season Ended) 2024 HIB VACCINE Aged Out No longer eligi [...] on patient's age to complete this topic Insurance [facility]
--- NOTE | 2024-09-02 07:13 | WPDHPUPDATE1 ---
History and Physical Update Update Date/Time: 09/02/24 07:13 History and Physical has been reviewed, including an updated exam of the patient. There are NO changes in the patient's condition. Risks, benefits, and alternatives have been discussed and questions answered. Patient agrees to proceed with procedure.
[2024-09-02] MEDS: LACTATED RINGERS 1,000 ML 30 ML IV CONT ×2 (08:40→11:00)
[2024-09-02 09:18] LABS: BEDSIDEPREGUCG Negative (Negative)
--- NOTE | 2024-09-02 09:35 | WPDANESEPPF ---
Anes - Initial Pre Proc Eval Procedure: Operation Date: 09/02/24 10:00 Proposed Procedures p Arthrodesis First Metatarsal Phalangeal Joint Right Foot - Dino Núñez Jr., DPM Date/Time: 09/02/24 09:35 Surgeon: Dino Núñez Jr., DPM Pre Op Diagnosis: Arthritic Bunion Rt Foot Patient Data Age: 53 Gender: F Height: 1.7 m Weight: 92.1 kg Last Vital Signs Temp 36.6 C 09/02/24 08:15 Pulse 76 09/02/24 08:15 Resp 16 09/02/24 08:15 BP 128/88 09/02/24 08:15 Pulse Ox 100 09/02/24 08:15 O2 Del Method Room Air 09/02/24 08:15 Allergies Allergy/AdvReac Type Severity Reaction Status Date / Time No Known Allergies Allergy Verified 09/02/24 08:39 Home Medications ?Medication ?Instructions ?Recorded ?Confirmed ?Type ergocalciferol (vitamin D2) 1,250 50,000 unit PO .bi-monthly 07/02/24 08/29/24 History mcg (50,000 unit) capsule fluoxetine 40 mg capsule 40 mg PO HS 07/02/24 08/29/24 History liothyronine 5 mcg tablet 5 mcg PO DAILY 07/02/24 09/02/24 History progesterone micronized 100 mg 100 mg PO HS 07/02/24 08/29/24 History capsule levothyroxine 50 mcg tablet 50 mcg PO DAILY 08/29/24 09/02/24 History Laboratory Tests 09/02/24 09:17 POC Urine HCG, Qual Negative (Negative) Patient hx anesthesia problems: none Family hx anesthesia problems: none Results Review: All pre-operative results and documents have been reviewed as part of the pre-operative evaluation. [facility] Past Medical History Medical History History of hypothyroidism Social History Social History Smoking status: Never smoker Alcohol intake: current Substance use: never Living arrangements: with family Spiritual care concerns: No Anes - Eval Final PreProcedure Day of Procedure 09/02/24 09:35 Patient weight: obese Heart: regular rate and rhythm Lungs: clear to auscultation Airway: Mallampati scale class II Neurological: alert and oriented Last oral intake: >/= 8 hours ASA classification: II Emergent: no Anesthetic plan: proceed Anesthesia type and monitoring: general LMA and standard monitoring Results Review: All pre-operative results and documents have been reviewed as part of the pre-operative evaluation. Informed Consent: The patient's anesthetic plan and its attendant risks and benefits were discussed with the patient/family/POA. Questions were solicited and answers provided to the satisfaction of the patient/family/POA.
[2024-09-02] MEDS: SCOPOLAMINE 1 MG PATCH 1 PATCH TRANSDERM (09:54)
[2024-09-02] MEDS: ceFAZolin 2 GM/D5W 50 ML 2 GM/50 ML BAG IVPB (10:10)
[2024-09-02] MEDS: LIDOCAINE 2% LOCAL INJ 20 ML VIAL 10 ML INFILTRATE (10:17)
[2024-09-02] MEDS: BUPivacaine HCL 0.5% 10 ML AMP INFILTRATE (10:17)
--- NOTE | 2024-09-02 11:10 | W.PM.PROC2 ---
Procedure Note - Detailed Date of Procedure 09/02/24 Pre-op Diagnosis Arthritic Bunion Right Foot Post-op Diagnosis Same Procedure Performed Arthrodesis of the 1st metatarsal phalangeal joint right foot Surgeon Dino Núñez Jr., DPM Anesthesia General and Local Indications Painful right forefoot Findings Severe joint degeneration with osteophytosis to the 1st metatarsal phalangeal joint right foot Description of Procedure PROCEDURE IN DETAIL: Under mild sedation, the patient was brought into the operating room, placed on the operating table in supine position. A pneumatic ankle tourniquet was placed about the patient's ipsilateral ankle. Following general anesthesia and a Davison Block with 20ccs of 2% Lidocaine plain and 0.5% Marcaine plain, the foot was then scrubbed, prepped, and draped in the usual aseptic manner. An Esmarch bandage was then used to exsanguinate the patient's foot and the pneumatic ankle tourniquet was then inflated. Surgery began in the following manner: Attention was directed to the dorsal medial aspect of the 1st metatarsophalangeal joint where there was a moderate subcutaneous prominence was noted. The incision was made starting along the central shaft of the 1st metatarsal and extending just proximal to the interphalangeal joint of the hallux. The incision was continued deep down through the subcutaneous tissues using sharp and blunt dissection. All bleeders were cauterized as necessary. At this point, the dissection was continued down to the level of the periosteum and capsular structures overlying the 1st metatarsophalangeal joint. A full length periosteum and capsular incision was made just medial to the extensor hallucis longus tendon. The periosteum and capsular structures were freed from the base of the proximal phalanx as well as the distal 1st metatarsal. At this point, the 1st metatarsophalangeal joint was identified. There was loss of articular cartilage to the head of the 1st metatarsal as well as the base of the proximal phalanx worse centrally and medially. There was significant broadening and hypertrophy of the 1st metatarsophalangeal joint. Utilizing a sagittal bone saw, the hypertrophied 1st metatarsal was resected dorsally, medially, and laterally. A power bur was used to make sure that there were no rough edges and also to further debride the hypertrophic 1st metatarsal. Next, a rongeur was used to resect the hypertrophic base of the proximal phalanx. At this point, the reamer system for the Maxforce plate system was used to denude the degenerative cartilage from the head of the 1st metatarsal as well as the base of the proximal phalanx. The cartilage and subchondral bone were fully debrided utilizing the reamer system until healthy bleeding bone was noted. Next, a 2-0 drill bit was used to further fenestrate the head of the 1st metatarsal as well as the base of the proximal phalanx in order to allow fusion across the 1st metatarsophalangeal joint. Next, a guide wire for a 3.5 headless Arthrex FT compression screw was driven from the medial aspect of the base of the proximal phalanx into the head of the 1st metatarsal in order to serve as temporary fixation, next the cannulated screw was driven and provided excellent compression. Next A large steel plate was used to make sure that the hallux was in a rectus position both in the sagittal plane as well as the frontal plane. Excellent position of the hallux was noted. Next, a Maxforce plate was placed atop the 1st metatarsophalangeal joint held in position with Griffin wires. Utilizing standard principles and techniques, the distal drill holes were drilled and three 3.0 mm fully-threaded locking screws were driven from dorsal to plantar holding the distal aspect of the plate intact. At this point, the Maxforce compression system was utilized from dorsal distal to proximal plantar across the 1st metatarsophalangeal joint with excellent compression noted. Next, a 3.0mm locking screw was used to further compress the joint along the oblong dynamic compression screw slot. Next, the remaining 2 proximal drill holes were drilled from dorsal to plantar across and two 3.0 mm locking screws were driven from dorsal to plantar. The wound site was then flushed with copious amounts of sterile saline. Fluoroscopy was used to make sure that the plate was appropriately aligned and oriented and also to make sure that the screws were of appropriate length and orientation. Excellent position of the 1st metatarsophalangeal joint was visualized in all planes. Next, the periosteum and capsular structures were reapproximated with 3-0 Vicryl. Next, the subcutaneous structures were reapproximated with 4-0 Vicryl. Next, the skin was reapproximated and coapted utilizing 4-0 Monocryl in running subcuticular suture fashion technique. Upon completion of the procedure, the incision was dressed with Steri-Strips, Adaptic, 4x4s, Kerlix, and Coban. The pneumatic ankle tourniquet was then deflated and a prompt hyperemic response was noted to all digits of the foot. A posterior splint was then applied to the affected lower extremity. It is important to note that Dr. Núñez was present throughout the procedure. The patient did very well with the procedure and the anesthesia. The patient was transferred to the recovery room with vital signs stable and vascular status intact to all toes of the foot. Following a period of postoperative monitoring, the patient will be discharged home on the following written and oral postoperative instructions: 1. Keep the dressing clean, dry, and intact. 2. The patient to be strictly nonweightbearing with a knee scooter or crutches. 3. The patient should ice and elevate the foot when at rest. 4. The patient should contact Dr. Núñez for all postop care and if any problems should arise. 5. Prescriptions were written for Percocet 5/325, dispensed 40 to be taken 1 p.o. q.4-6 hours as needed for severe pain. Furthermore, the patient should also take Xarelto 10 mg to be taken 1 p.o. daily starting 24 hours after surgery to prevent DVT for 14 days followed by one 325 mg aspirin until walking is re-initiated. Implants Arthrex 1st MPJ Maxforce plate with five 3.0mm locking screws and one Kreulock screw One Arthrex FT Headless compression screw 3.5mm Estimated Blood Loss 1 Drains No Packing No Pathology None sent Complications No immediate complications Condition Stable Disposition Same day
[2024-09-02] MEDS: oxyCODONE HCL (*CRX) 5 MG TAB IR PO (12:00)
== END 2024-09-02 12:48 | disposition home or self-care (01) ==
PROVIDERS: PCP Family Medicine; Visit Provider Podiatrist Foot & Ankle Surgery
PROC: (CPT 28750; principal; 2024-09-02 10:00)
DX: M21.611 Bunion of right foot (principal); M19.071 Primary osteoarthritis, right ankle and foot; E66.9 Obesity, unspecified; Z68.31 Body mass index [BMI] 31.0-31.9, adult
CPT/HCPCS: 28750; 99199; A9270; C1713; C1769; J0690; J1100; J2003; J2250; J2405; J2704; J3010; J7120